=== PATIENT | female | born 1995 | race Caucasian/White ===

== ENCOUNTER 2018-11-26 23:32 | Emergency (ER) | payer OTHER ==
[~2018-11-26] VITALS: Ht 152.4 cm; Wt 113.4 kg
[2018-11-26] MEDS ORDERED: KAPSPARGO SPRI100 MG PO (23:47)
[2018-11-26] MEDS ORDERED: LORA1 PO (23:48)
[2018-11-26] MEDS ORDERED: LOSA50 PO (23:48)
[2018-11-26] MEDS ORDERED: LOPE2C PO (23:48)
[2018-11-26] MEDS ORDERED: Atrovent Inha12.9 GM INH (23:48)
[2018-11-26] MEDS ORDERED: TOPI50 PO (23:49)
[2018-11-26] MEDS ORDERED: ALLO100 PO (23:50)
[2018-11-26] MEDS ORDERED: SODBIC650 PO (23:50)
[2018-11-26] MEDS ORDERED: CINA30 (23:50)
[2018-11-26] MEDS ORDERED: LEVSOD137 PO (23:50)
[2018-11-27 00:06] LABS: BASOPHILS ABSOLUTE AUTO 0.05 K/mm3 (0.00-0.23); BASOPHILS PERCENT AUTO 0 % (0-2); EOSINOPHILS ABSOLUTE AUTO 0.24 K/mm3 (0.00-0.68); EOSINOPHILS PERCENT AUTO 2 % (0-6); Hematocrit 32.1 % (33.0-51.0); Hemoglobin 10.8 g/dL (11.5-16.0); IMMATURE GRAN ABSOLUTE AUTO 0.05 K/mm3 (0.00-0.10); IMMATURE GRAN PERCENT AUTO 0 % (0-1); LYMPHOCYTES ABSOLUTE AUTO 2.58 K/mm3 (0.84-5.20); LYMPHOCYTES PERCENT AUTO 21 % (21-46); MONOCYTES ABSOLUTE AUTO 0.72 K/mm3 (0.16-1.47); MONOCYTES PERCENT AUTO 6 % (4-13); Mean Corpuscular HGB Conc 33.6 g/dL (31.5-36.5); Mean Corpuscular Volume 101 fL (80-100); Mean Platelet Volume 9.9 fL (9.1-12.4); NEUTROPHILS ABSOLUTE AUTO 8.48 K/mm3 (1.96-9.15); NEUTROPHILS PERCENT AUTO 70 % (41-73); Platelet Count 284 K/mm3 (150-400); RDW Coefficient Variation 12.4 % (11.7-14.2); RDW Standard Deviation 46.5 fL (35.1-46.3); Red Blood Cell Count 3.18 M/mm3 (3.80-5.20); White Blood Cell Count 12.12 K/mm3 (4.00-11.30)
[2018-11-27 00:26] LABS: Alanine Aminotransfer (ALT/SGP 22 U/L (12-78); Albumin, Blood 3.5 g/dL (3.4-5.0); Albumin/Globulin Ratio 0.9 (0.8-1.8); Alk Phos 55 U/L (50-136); Anion Gap 9 mmol/L (6-16); Aspartate Aminotrans (AST/SGOT 4 U/L (12-37); Bilirubin, Total 0.2 mg/dL (0.1-1.0); Blood Urea Nitrogen 29 mg/dL (8-24); Bun/Creatinine Ratio 6.6 (12.0-20.0); CO2, Blood 31 mmol/L (21-32); Calcium, Blood 9.1 mg/dL (8.5-10.1); Chloride, Blood 99 mmol/L (98-108); Globulin, Blood 3.9 g/dL (2.2-4.0); Glomerular Filtration Rate 13 (60-); Glucose, Blood 167 mg/dL (70-99); Potassium, Blood 3.7 mmol/L (3.5-5.5); Sodium, Blood 139 mmol/L (136-145); Total Protein, Blood 7.4 g/dL (6.4-8.2); Troponin I <0.015 ng/mL (0.000-0.040)
== END 2018-11-27 04:47 | disposition home or self-care (01) ==
LOC: ER 23:32
PROVIDERS: Emergency Medicine
DX: R07.9 Chest pain, unspecified (principal); Z79.899 Other long term (current) drug therapy; N18.9 Chronic kidney disease, unspecified
CPT/HCPCS: 71046; 80053; 83880; 84484; 84703; 85025; 93005; 93010; 99285-25; J1642

== ENCOUNTER 2019-03-05 21:46 | Inpatient (IN) | payer OTHER ==
[~2019-03-05] VITALS: Ht 152.4 cm; Wt 129.7 kg
[~2019-03-05 21:46] MED LIST: ALLO100 PO; Atrovent Inha12.9 GM INH; CINA30; KAPSPARGO SPRI100 MG PO; LEVSOD137 PO; LOPE2C PO; LORA1 PO; LOSA50 PO; SODBIC650 PO; TOPI50 PO
[2019-03-06 00:11] LABS: BASOPHILS ABSOLUTE AUTO 0.04 K/mm3 (0.00-0.23); BASOPHILS PERCENT AUTO 0 % (0-2); EOSINOPHILS ABSOLUTE AUTO 0.21 K/mm3 (0.00-0.68); EOSINOPHILS PERCENT AUTO 1 % (0-6); Hematocrit 30.8 % (33.0-51.0); Hemoglobin 10.2 g/dL (11.5-16.0); IMMATURE GRAN ABSOLUTE AUTO 0.11 K/mm3 (0.00-0.10); IMMATURE GRAN PERCENT AUTO 1 % (0-1); LYMPHOCYTES ABSOLUTE AUTO 1.39 K/mm3 (0.84-5.20); LYMPHOCYTES PERCENT AUTO 10 % (21-46); MONOCYTES ABSOLUTE AUTO 0.67 K/mm3 (0.16-1.47); MONOCYTES PERCENT AUTO 5 % (4-13); Mean Corpuscular HGB Conc 33.1 g/dL (31.5-36.5); Mean Corpuscular Volume 103 fL (80-100); Mean Platelet Volume 9.9 fL (9.1-12.4); NEUTROPHILS ABSOLUTE AUTO 12.22 K/mm3 (1.96-9.15); NEUTROPHILS PERCENT AUTO 83 % (41-73); Platelet Count 277 K/mm3 (150-400); RDW Coefficient Variation 13.5 % (11.7-14.2); White Blood Cell Count 14.64 K/mm3 (4.00-11.30)
[2019-03-06 01:02] LABS: Albumin, Blood 2.9 g/dL (3.4-5.0); Albumin/Globulin Ratio 0.6 (0.8-1.8); Bilirubin, Total 0.3 mg/dL (0.1-1.0); Calcium, Blood 9.7 mg/dL (8.5-10.1); Creatinine, Blood 9.37 mg/dL (0.40-1.00); Globulin, Blood 4.8 g/dL (2.2-4.0); Total Protein, Blood 7.7 g/dL (6.4-8.2)
[2019-03-06] MEDS ORDERED: VITAMIN D (01:46)
[2019-03-06] MEDS ORDERED: ACET500 PO (01:50)
[2019-03-06] MEDS ORDERED: Catapres-Tts 11 EACH TOP (01:51)
[2019-03-06] MEDS ORDERED: ACET250 PO (01:51)
[2019-03-06] MEDS ORDERED: Calphron667 MG PO (01:51)
[2019-03-06] MEDS ORDERED: FISH OIL + D31 EACH PO (01:52)
[2019-03-06] MEDS ORDERED: BENADRYL25 MG PO (01:52)
[2019-03-06] MEDS ORDERED: COLCHICINE0.6 MG PO (01:52)
[2019-03-06] MEDS ORDERED: [UNRECOGNIZED DRUG - OTHER] PO (01:53)
[2019-03-06] MEDS ORDERED: PROM25S PR (01:53)
[2019-03-06] MEDS ORDERED: CINA30 PO (01:53)
[2019-03-06] MEDS ORDERED: OXYC5 PO (01:54)
[2019-03-06 05:44] LABS: BASOPHILS ABSOLUTE AUTO 0.04 K/mm3 (0.00-0.23); BASOPHILS PERCENT AUTO 0 % (0-2); EOSINOPHILS ABSOLUTE AUTO 0.22 K/mm3 (0.00-0.68); EOSINOPHILS PERCENT AUTO 2 % (0-6); Hematocrit 28.9 % (33.0-51.0); Hemoglobin 9.4 g/dL (11.5-16.0); IMMATURE GRAN ABSOLUTE AUTO 0.08 K/mm3 (0.00-0.10); IMMATURE GRAN PERCENT AUTO 1 % (0-1); LYMPHOCYTES ABSOLUTE AUTO 1.35 K/mm3 (0.84-5.20); LYMPHOCYTES PERCENT AUTO 10 % (21-46); MONOCYTES ABSOLUTE AUTO 0.69 K/mm3 (0.16-1.47); MONOCYTES PERCENT AUTO 5 % (4-13); Mean Corpuscular HGB 33.2 pg (26.0-34.0); Mean Corpuscular HGB Conc 32.5 g/dL (31.5-36.5); Mean Corpuscular Volume 102 fL (80-100); Mean Platelet Volume 9.7 fL (9.1-12.4); NEUTROPHILS ABSOLUTE AUTO 11.75 K/mm3 (1.96-9.15); NEUTROPHILS PERCENT AUTO 83 % (41-73); Platelet Count 251 K/mm3 (150-400); RDW Coefficient Variation 13.5 % (11.7-14.2); RDW Standard Deviation 50.9 fL (35.1-46.3); Red Blood Cell Count 2.83 M/mm3 (3.80-5.20); White Blood Cell Count 14.13 K/mm3 (4.00-11.30)
[2019-03-06 06:11] LABS: Calcium, Blood 9.5 mg/dL (8.5-10.1); Potassium, Blood 4.2 mmol/L (3.5-5.5)
[2019-03-06 06:16] LABS: Bun/Creatinine Ratio 6.2 (12.0-20.0); Creatinine, Blood 9.15 mg/dL (0.40-1.00)
--- NOTE | 2019-03-06 09:24 | NUR ---
TRANSPORTED TO DIALYSIS VIA STRETCHER.
[2019-03-06] MEDS ORDERED: Calcium Acetat667 MG PO (10:50)
--- NOTE | 2019-03-06 16:41 | NUR ---
SPOKE WITH SUMMER IN IMAGING SHE CONFIRMED THAT PT WAS SCHEDULED TO HAVE CT TODAY.
--- NOTE | 2019-03-06 19:17 | NUR ---
SHIFT SUMMARY OX3 INDEPENDENT. C/O LEFT ARM PAIN AND SWELLING; CT COMPLETED. 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 DIALYSIS PORT TO LEFT CW; RICHMOND CHAVEZ DRAINING SCANT AMOUNT TO LUE. UNPLEASANT BUT COOPERATIVE WITH CARE. FAMILY IN ROOM AND ATTENTIVE. RENTERIA. AFEBRILE TODAY.
--- NOTE | 2019-03-07 03:51 | NUR ---
SHIFT SUMMARY PT IS ALERT, ORIENTED, AND INDEPENDENT. PT REMAINED AFEBRILE DURING THE SHIFT. PT DID COMPLAIN OF PAIN IN HER LEFT ARM. PRN ANALGESICS WERE GIVEN TO GOOD EFFECT. PT ALSO COMPLAINED OF RASH ON BOTH ARMS. PT STATED IT DEVELOPED EARLIER IN THE DAY. PRN BENEDRYL WAS GIVEN. PT SLEPT ALL NIGHT AND HAD NO OTHER COMPLAINTS. THE PT AND FAMILY ARE ANXIOUSLY WAITING THE CT RESULTS. VSS. WILL CONTINUE TO MONITOR.
[2019-03-07 05:23] LABS: Hematocrit 30.1 % (33.0-51.0); Hemoglobin 9.7 g/dL (11.5-16.0)
[2019-03-07 05:45] LABS: Albumin, Blood 2.6 g/dL (3.4-5.0); Anion Gap 6 mmol/L (6-16); Blood Urea Nitrogen 45 mg/dL (8-24); CO2, Blood 35 mmol/L (21-32); Chloride, Blood 94 mmol/L (98-108); Creatinine, Blood 7.52 mg/dL (0.40-1.00); Glomerular Filtration Rate 7 (60-); Glucose, Blood 97 mg/dL (70-99); Magnesium, Blood 2.4 mg/dL (1.6-2.4); Potassium, Blood 4.2 mmol/L (3.5-5.5); Sodium, Blood 135 mmol/L (136-145)
--- NOTE | 2019-03-07 06:43 | NUR ---
HOSPITALIST WAS MADE AWARE OF POSITIVE BLOOD CULTURE AND INSTRUCTED RN THAT IF PT HAD A FEVER, TO ORDER VANCOMYOCIN PER PHARMACY. PT DOES NOT HAVE A FEVER AT THIS TIME. WILL RELAY INFORMATION TO DAY SHIFT.
--- NOTE | 2019-03-07 18:07 | NUR ---
SUMMARY PT SITTING UP IN BED EATING DINNER AND VISITING WITH HER MOTHER, PT HAS BEEN PLEASANT AND COOPERATIVE WITH CARE, INDEPENDENT IN THE ROOM, PT HAD A SHOWER, PT WENT TO DIALYSIS, BLOOD CULTURES WERE DRAWN FROM THE DIALYSIS CATH, THE MEDIPORT, AND PERIPHERALLY ALL AT THE SAME TIME THIS EVENING, PT GIULIA WELL, PT MED PER EMAR FOR PAIN, VSS, NO ACUTE CHANGES, WILL CONT TO MONITOR
--- NOTE | 2019-03-08 03:50 | NUR ---
SHIFT SUMMARY PT IS ALERT, ORIENTED, AND INDEPENDENT. PT CONTINUES TO COMPLAIN OF PAIN IN THE LEFT UPPER EXTREMITY. NO FEVER NOTED THIS SHIFT, AND OTHER VS WNL. PT CONTINUES TO HAVE RASH ON THE RIGHT POSTERIOR ARM. BENEDRYL GIVEN X1. NO OTHER COMPLAINTS AT THIS TIME. WILL CONTINUE TO MONITOR.
[2019-03-08 05:28] LABS: Hematocrit 29.6 % (33.0-51.0); Hemoglobin 9.4 g/dL (11.5-16.0)
[2019-03-08 06:00] LABS: Magnesium, Blood 2.2 mg/dL (1.6-2.4)
[2019-03-08 06:01] LABS: Albumin, Blood 2.5 g/dL (3.4-5.0); Anion Gap 6 mmol/L (6-16); Blood Urea Nitrogen 41 mg/dL (8-24); Bun/Creatinine Ratio 5.8 (12.0-20.0); CO2, Blood 36 mmol/L (21-32); Calcium, Blood 9.8 mg/dL (8.5-10.1); Chloride, Blood 93 mmol/L (98-108); Creatinine, Blood 7.04 mg/dL (0.40-1.00); Glomerular Filtration Rate 8 (60-); Glucose, Blood 110 mg/dL (70-99); Potassium, Blood 4.5 mmol/L (3.5-5.5); Sodium, Blood 135 mmol/L (136-145)
[2019-03-08] MEDS ORDERED: CEPH500 PO (11:19)
--- NOTE | 2019-03-08 12:18 | NUR ---
SUMMARY/DISCHARGE PT DISCHARGED TO HOME, PT AND HER MOM VERBALIZED UNDERSTANDING OF DISCHARGE INSTRUCTIONS REGARDING FOLLOW UP AND MEDICATIONS, MEDIPORT PACKED AND DEACCESSED, PT GIULIA WELL, PT TAKEN OUT VIA WHEELCHAIR WITHOUT ISSUES
== END 2019-03-08 12:20 | disposition home or self-care (01) | DRG 602 ==
LOC: ER 21:46 → MEDS 21:47 → ENPENDDIS 03-08 10:22 → MEDS 03-08 12:20
PROVIDERS: Emergency Medicine; Internal Medicine Nephrology; ADMIT Internal Medicine
PROC: 5A1D70Z Performance of Urinary Filtration, Intermittent, Less than 6 Hours Per Day (ICD-10-PCS; principal; 2019-03-08)
DX: L03.114 Cellulitis of left upper limb (principal); N18.6 End stage renal disease; G61.0 Guillain-Barre syndrome; N25.81 Secondary hyperparathyroidism of renal origin; E87.1 Hypo-osmolality and hyponatremia; R65.10 Systemic inflammatory response syndrome (SIRS) of non-infectious origin without acute organ dysfunction; I12.0 Hypertensive chronic kidney disease with stage 5 chronic kidney disease or end stage renal disease; Z99.2 Dependence on renal dialysis; D63.1 Anemia in chronic kidney disease; E87.70 Fluid overload, unspecified; E88.09 Other disorders of plasma-protein metabolism, not elsewhere classified; E03.9 Hypothyroidism, unspecified
CPT/HCPCS: 36415; 71046; 73200; 80048; 80053; 80069; 82550; 83605; 83735; 84443; 85014; 85018; 85025; 87040; 94640; 94760; 96361; 96372; 96374; 96375; 96376; 99285-25; G0257; G0378; J0881; J1642; J1644; J2270; J2405; J3370; J7030; J7050; Q0163

== ENCOUNTER → 2019-04-18 | Outpatient (CLI) | payer OTHER ==
[~2019-04-18] MED LIST changes: +ACET250 PO; +ACET500 PO; +BENADRYL25 MG PO; +CEPH500 PO; +CINA30 PO; +COLCHICINE0.6 MG PO; +Calcium Acetat667 MG PO; +Calphron667 MG PO; +Catapres-Tts 11 EACH TOP; +FISH OIL + D31 EACH PO; +OXYC5 PO; +PROM25S PR; +VITAMIN D; +[UNRECOGNIZED DRUG - OTHER] PO
[2019-04-18 17:46] LABS: Amylase, Blood 35 U/L (25-115)
[2019-04-18 17:49] LABS: Alanine Aminotransfer (ALT/SGP 17 U/L (12-78); Albumin, Blood 3.2 g/dL (3.4-5.0); Albumin/Globulin Ratio 0.8 (0.8-1.8); Alk Phos 57 U/L (50-136); Aspartate Aminotrans (AST/SGOT 6 U/L (12-37); Bilirubin, Direct <0.1 mg/dL (0.0-0.3); Bilirubin, Indirect Unable to Calculate mg/dL (0.1-0.7); Bilirubin, Total 0.3 mg/dL (0.1-1.0); Globulin, Blood 3.8 g/dL (2.2-4.0)
== END | disposition home or self-care (01) ==
LOC: LAB DAV 16:30
PROVIDERS: Internal Medicine Nephrology
DX: R10.9 Unspecified abdominal pain (principal)
CPT/HCPCS: 80076; 82150; 83690

== ENCOUNTER 2019-04-23 15:23 | Emergency (ER) | payer OTHER ==
[~2019-04-23] VITALS: Ht 152.4 cm; Wt 122.5 kg
[2019-04-23] MEDS ORDERED: PANT40 PO (15:42)
[2019-04-23 17:02] LABS: BASOPHILS ABSOLUTE AUTO 0.05 K/mm3 (0.00-0.23); BASOPHILS PERCENT AUTO 1 % (0-2); EOSINOPHILS PERCENT AUTO 3 % (0-6); Hematocrit 32.6 % (33.0-51.0); Hemoglobin 10.8 g/dL (11.5-16.0); IMMATURE GRAN ABSOLUTE AUTO 0.04 K/mm3 (0.00-0.10); IMMATURE GRAN PERCENT AUTO 0 % (0-1); LYMPHOCYTES ABSOLUTE AUTO 2.19 K/mm3 (0.84-5.20); LYMPHOCYTES PERCENT AUTO 21 % (21-46); MONOCYTES ABSOLUTE AUTO 0.66 K/mm3 (0.16-1.47); MONOCYTES PERCENT AUTO 6 % (4-13); Mean Corpuscular HGB 33.9 pg (26.0-34.0); Mean Corpuscular HGB Conc 33.1 g/dL (31.5-36.5); Mean Corpuscular Volume 102 fL (80-100); Mean Platelet Volume 9.5 fL (9.1-12.4); NEUTROPHILS PERCENT AUTO 70 % (41-73); Platelet Count 359 K/mm3 (150-400); RDW Coefficient Variation 13.3 % (11.7-14.2); RDW Standard Deviation 50.9 fL (35.1-46.3); Red Blood Cell Count 3.19 M/mm3 (3.80-5.20); White Blood Cell Count 10.64 K/mm3 (4.00-11.30)
[2019-04-23 17:24] LABS: Alanine Aminotransfer (ALT/SGP 17 U/L (12-78); Albumin, Blood 3.4 g/dL (3.4-5.0); Albumin/Globulin Ratio 0.8 (0.8-1.8); Alk Phos 53 U/L (50-136); Anion Gap 10 mmol/L (6-16); Aspartate Aminotrans (AST/SGOT 8 U/L (12-37); Bilirubin, Total 0.3 mg/dL (0.1-1.0); Blood Urea Nitrogen 60 mg/dL (8-24); Bun/Creatinine Ratio 8.9 (12.0-20.0); CO2, Blood 24 mmol/L (21-32); Calcium, Blood 9.5 mg/dL (8.5-10.1); Chloride, Blood 105 mmol/L (98-108); Creatinine, Blood 6.75 mg/dL (0.40-1.00); Glomerular Filtration Rate 8 (60-); Glucose, Blood 84 mg/dL (70-99); Potassium, Blood 4.5 mmol/L (3.5-5.5); Sodium, Blood 139 mmol/L (136-145); Total Protein, Blood 7.4 g/dL (6.4-8.2); Troponin I <0.015 ng/mL (0.000-0.040)
== END 2019-04-23 22:33 | disposition home or self-care (01) ==
LOC: ER 15:23
PROVIDERS: Physician Assistant
DX: R07.9 Chest pain, unspecified (principal); I12.0 Hypertensive chronic kidney disease with stage 5 chronic kidney disease or end stage renal disease; N18.6 End stage renal disease; D63.1 Anemia in chronic kidney disease; R79.1 Abnormal coagulation profile; E03.9 Hypothyroidism, unspecified; Z99.2 Dependence on renal dialysis; Z86.73 Personal history of transient ischemic attack (TIA), and cerebral infarction without residual deficits; Z88.8 Allergy status to other drugs, medicaments and biological substances; Z91.048 Other nonmedicinal substance allergy status; Z88.5 Allergy status to narcotic agent; Z91.040 Latex allergy status; Z79.899 Other long term (current) drug therapy
CPT/HCPCS: 71046; 71260; 80053; 83880; 84484; 85025; 85379; 93005; 93010; 96374-59; 96375-59; 99285-25; J1200; J1642; J2930; Q9967

== ENCOUNTER 2019-05-09 16:16 | Emergency (ER) | payer OTHER ==
[~2019-05-09] VITALS: Ht 154.9 cm; Wt 97.5 kg
[~2019-05-09 16:16] MED LIST changes: +PANT40 PO
[2019-05-09 18:51] LABS: BASOPHILS ABSOLUTE AUTO 0.05 K/mm3 (0.00-0.23); BASOPHILS PERCENT AUTO 1 % (0-2); EOSINOPHILS ABSOLUTE AUTO 0.16 K/mm3 (0.00-0.68); EOSINOPHILS PERCENT AUTO 2 % (0-6); IMMATURE GRAN ABSOLUTE AUTO 0.04 K/mm3 (0.00-0.10); IMMATURE GRAN PERCENT AUTO 0 % (0-1); LYMPHOCYTES ABSOLUTE AUTO 2.26 K/mm3 (0.84-5.20); LYMPHOCYTES PERCENT AUTO 22 % (21-46); MONOCYTES ABSOLUTE AUTO 0.68 K/mm3 (0.16-1.47); MONOCYTES PERCENT AUTO 7 % (4-13); Mean Corpuscular HGB 33.4 pg (26.0-34.0); Mean Corpuscular HGB Conc 33.3 g/dL (31.5-36.5); Mean Corpuscular Volume 100 fL (80-100); Mean Platelet Volume 9.4 fL (9.1-12.4); NEUTROPHILS ABSOLUTE AUTO 6.97 K/mm3 (1.96-9.15); NEUTROPHILS PERCENT AUTO 69 % (41-73); Platelet Count 283 K/mm3 (150-400); RDW Coefficient Variation 13.3 % (11.7-14.2); RDW Standard Deviation 49.1 fL (35.1-46.3); Red Blood Cell Count 3.29 M/mm3 (3.80-5.20); White Blood Cell Count 10.16 K/mm3 (4.00-11.30)
[2019-05-09 19:13] LABS: Alanine Aminotransfer (ALT/SGP 20 U/L (12-78); Albumin, Blood 3.4 g/dL (3.4-5.0); Albumin/Globulin Ratio 0.8 (0.8-1.8); Alk Phos 64 U/L (50-136); Anion Gap 5 mmol/L (6-16); Aspartate Aminotrans (AST/SGOT 10 U/L (12-37); Bilirubin, Total 0.3 mg/dL (0.1-1.0); Blood Urea Nitrogen 27 mg/dL (8-24); Bun/Creatinine Ratio 6.2 (12.0-20.0); CO2, Blood 34 mmol/L (21-32); Calcium, Blood 9.2 mg/dL (8.5-10.1); Chloride, Blood 98 mmol/L (98-108); Creatinine, Blood 4.33 mg/dL (0.40-1.00); Glomerular Filtration Rate 13 (60-); Glucose, Blood 78 mg/dL (70-99); Potassium, Blood 3.5 mmol/L (3.5-5.5); Sodium, Blood 137 mmol/L (136-145); Total Protein, Blood 7.4 g/dL (6.4-8.2); Troponin I <0.015 ng/mL (0.000-0.040)
== END 2019-05-09 21:31 | disposition home or self-care (01) ==
LOC: ER 16:16
PROVIDERS: Emergency Medicine
DX: R00.0 Tachycardia, unspecified (principal); I12.9 Hypertensive chronic kidney disease with stage 1 through stage 4 chronic kidney disease, or unspecified chronic kidney disease; N18.9 Chronic kidney disease, unspecified; Z88.5 Allergy status to narcotic agent; Z79.899 Other long term (current) drug therapy
CPT/HCPCS: 71046; 80053; 83880; 84484; 85025; 93005; 93010; 96374; 96375; 99285-25; A9270; J0780; J1642

== ENCOUNTER 2020-02-07 08:15 | Day surgery (SDC) | payer MEDICARE, OTHER ==
--- NOTE | 2020-02-07 12:08 | NUR ---
PT ATTEMPTED TWICE DURING THE VISIT TO URINATE. SHE WAS UNABLE TO COLLECT A SAMPLE. SPECIMIN CUP, CLEANING WIPES AND COPY OF ORDER SENT WITH PT. SHE REPORTS THAT SHE RARELY URINATES D/T ESRD. SHE STATES SOMETIMES IN THE MORNINGS SHE HAS SOME URINE IN HER BLADDER AND SHE WILL TRY TO COLLECT A SAMPLE AT THAT TIME.
[2020-02-07 12:48] LABS: Amylase, Blood 37 U/L (25-115)
[2020-02-07 12:53] LABS: Alanine Aminotransfer (ALT/SGP 22 U/L (12-78); Albumin, Blood 3.2 g/dL (3.4-5.0); Albumin/Globulin Ratio 0.8 (0.8-1.8); Alk Phos 57 U/L (50-136); Aspartate Aminotrans (AST/SGOT 5 U/L (12-37); Bilirubin, Direct <0.1 mg/dL (0.0-0.3); Bilirubin, Indirect Unable to Calculate mg/dL (0.1-0.7); Bilirubin, Total 0.3 mg/dL (0.1-1.0); Globulin, Blood 4.1 g/dL (2.2-4.0); Total Protein, Blood 7.3 g/dL (6.4-8.2)
== END 2020-02-07 12:08 | disposition home or self-care (01) ==
LOC: ATC 08:15
PROVIDERS: Internal Medicine Nephrology
DX: T82.848A Pain due to vascular prosthetic devices, implants and grafts, initial encounter (principal); E66.01 Morbid (severe) obesity due to excess calories; Y83.2 Surgical operation with anastomosis, bypass or graft as the cause of abnormal reaction of the patient, or of later complication, without mention of misadventure at the time of the procedure; I12.0 Hypertensive chronic kidney disease with stage 5 chronic kidney disease or end stage renal disease; E03.9 Hypothyroidism, unspecified; N18.6 End stage renal disease; Z99.2 Dependence on renal dialysis; Z88.5 Allergy status to narcotic agent; Z88.8 Allergy status to other drugs, medicaments and biological substances; Z88.1 Allergy status to other antibiotic agents; Z91.041 Radiographic dye allergy status; Z91.040 Latex allergy status; Z79.899 Other long term (current) drug therapy
CPT/HCPCS: 36591; 80076; 82150; 83690; 84703; J1642

== ENCOUNTER → 2020-02-08 | Outpatient (CLI) | payer MEDICARE, OTHER ==
[2020-02-08 11:57] LABS: Source, Urine Clean Catch
[2020-02-08 12:04] LABS: Bilirubin, Urine Neg (Neg); Blood, Urine 5+ (Neg); Glucose Qualitative, Urine Neg (Neg); Ketones, Urine Neg (Neg); Leukocyte Esterase, Urine 3+ (Neg); Nitrite, Urine Neg (Neg); Protein, Urine 3+ (Neg); Urobilinogen, Urine NORM (Normal)
[2020-02-08 12:12] LABS: Appearance, Urine Cloudy (Clear); Color, Urine Pale Yellow (P-Yellow)
[2020-02-08 12:14] LABS: Red Blood Cells, Urine 25-50 /hpf (0-2); White Blood Cells, Urine TNTC /hpf (0-5)
[2020-02-08 12:15] LABS: Squamous Epithelial Cells Few /hpf (Few)
[2020-02-08 12:16] LABS: Bacteria Mod /hpf
== END | disposition home or self-care (01) ==
LOC: LAB SHORT 09:00 → LAB 09:00
PROVIDERS: Internal Medicine Nephrology
DX: N18.4 Chronic kidney disease, stage 4 (severe) (principal); D63.1 Anemia in chronic kidney disease; R82.90 Unspecified abnormal findings in urine
CPT/HCPCS: 81001; 87086

== ENCOUNTER 2020-03-06 00:13 | Day surgery (SDC) | payer MEDICARE, OTHER | END 2020-03-06 11:10 | disposition home or self-care (01) | LOC: ATC 00:13 | DX: R07.9 Chest pain, unspecified (principal); I12.0 Hypertensive chronic kidney disease with stage 5 chronic kidney disease or end stage renal disease; N18.6 End stage renal disease; Z99.2 Dependence on renal dialysis; E66.01 Morbid (severe) obesity due to excess calories; Z88.5 Allergy status to narcotic agent; Z88.8 Allergy status to other drugs, medicaments and biological substances; Z88.3 Allergy status to other anti-infective agents; Z91.041 Radiographic dye allergy status; Z91.040 Latex allergy status; Z79.899 Other long term (current) drug therapy ==

== ENCOUNTER 2020-04-06 00:35 | Day surgery (SDC) | payer MEDICARE, OTHER | END 2020-04-06 10:38 | disposition home or self-care (01) | LOC: ATC 00:35 | DX: T82.848A Pain due to vascular prosthetic devices, implants and grafts, initial encounter (principal); Y83.2 Surgical operation with anastomosis, bypass or graft as the cause of abnormal reaction of the patient, or of later complication, without mention of misadventure at the time of the procedure; I12.0 Hypertensive chronic kidney disease with stage 5 chronic kidney disease or end stage renal disease; N18.6 End stage renal disease; E03.9 Hypothyroidism, unspecified; Z99.2 Dependence on renal dialysis; Z88.5 Allergy status to narcotic agent; Z88.8 Allergy status to other drugs, medicaments and biological substances; Z88.3 Allergy status to other anti-infective agents; Z91.041 Radiographic dye allergy status; Z91.040 Latex allergy status; Z79.899 Other long term (current) drug therapy; E66.01 Morbid (severe) obesity due to excess calories | CPT/HCPCS: 96523; J1642 ==

== ENCOUNTER 2020-05-06 00:34 | Day surgery (SDC) | payer MEDICARE, OTHER | END 2020-05-06 11:19 | disposition home or self-care (01) | LOC: ATC 00:34 | DX: Z45.2 Encounter for adjustment and management of vascular access device (principal); I12.0 Hypertensive chronic kidney disease with stage 5 chronic kidney disease or end stage renal disease; N18.6 End stage renal disease; E03.9 Hypothyroidism, unspecified; M10.9 Gout, unspecified; G93.2 Benign intracranial hypertension; E66.01 Morbid (severe) obesity due to excess calories; Z88.5 Allergy status to narcotic agent; Z88.8 Allergy status to other drugs, medicaments and biological substances; Z91.041 Radiographic dye allergy status; Z91.09 Other allergy status, other than to drugs and biological substances; Z91.048 Other nonmedicinal substance allergy status; Z91.040 Latex allergy status; Z79.899 Other long term (current) drug therapy; Z99.2 Dependence on renal dialysis; Z79.51 Long term (current) use of inhaled steroids | CPT/HCPCS: 96523; J1642 ==

== ENCOUNTER 2020-06-06 16:00 | Emergency (ER) | payer MEDICARE, OTHER ==
[~2020-06-06] VITALS: Ht 152.4 cm; Wt 122.0 kg
[2020-06-06 18:16] LABS: BASOPHILS ABSOLUTE AUTO 0.04 K/mm3 (0.00-0.23); BASOPHILS PERCENT AUTO 0 % (0-2); EOSINOPHILS ABSOLUTE AUTO 0.09 K/mm3 (0.00-0.68); EOSINOPHILS PERCENT AUTO 1 % (0-6); Hematocrit 32.2 % (33.0-51.0); Hemoglobin 10.8 g/dL (11.5-16.0); IMMATURE GRAN ABSOLUTE AUTO 0.04 K/mm3 (0.00-0.10); IMMATURE GRAN PERCENT AUTO 0 % (0-1); LYMPHOCYTES ABSOLUTE AUTO 1.66 K/mm3 (0.84-5.20); LYMPHOCYTES PERCENT AUTO 18 % (21-46); MONOCYTES ABSOLUTE AUTO 0.48 K/mm3 (0.16-1.47); MONOCYTES PERCENT AUTO 5 % (4-13); Mean Corpuscular HGB 34.7 pg (26.0-34.0); Mean Corpuscular HGB Conc 33.5 g/dL (31.5-36.5); Mean Corpuscular Volume 104 fL (80-100); Mean Platelet Volume 9.4 fL (9.1-12.4); NEUTROPHILS ABSOLUTE AUTO 6.91 K/mm3 (1.96-9.15); NEUTROPHILS PERCENT AUTO 75 % (41-73); Platelet Count 291 K/mm3 (150-400); RDW Coefficient Variation 13.4 % (11.7-14.2); RDW Standard Deviation 51.2 fL (35.1-46.3); Red Blood Cell Count 3.11 M/mm3 (3.80-5.20); White Blood Cell Count 9.22 K/mm3 (4.00-11.30)
[2020-06-06 18:34] LABS: Albumin, Blood 3.3 g/dL (3.4-5.0); Albumin/Globulin Ratio 0.8 (0.8-1.8); Bilirubin, Total 0.3 mg/dL (0.1-1.0); Calcium, Blood 9.1 mg/dL (8.5-10.1); Creatinine, Blood 3.5 mg/dL (0.40-1.00); Globulin, Blood 4.2 g/dL (2.2-4.0); Total Protein, Blood 7.5 g/dL (6.4-8.2)
[2020-06-06] MEDS ORDERED: OXYC5 PO (19:27)
== END 2020-06-06 19:33 | disposition home or self-care (01) ==
LOC: ER 16:00
PROVIDERS: Physician Assistant
DX: S40.022A Contusion of left upper arm, initial encounter (principal); I12.9 Hypertensive chronic kidney disease with stage 1 through stage 4 chronic kidney disease, or unspecified chronic kidney disease; N18.6 End stage renal disease; Z86.73 Personal history of transient ischemic attack (TIA), and cerebral infarction without residual deficits; Z99.2 Dependence on renal dialysis; X58.XXXA Exposure to other specified factors, initial encounter
CPT/HCPCS: 36415; 80053; 85025; 93971; J1170; J1642; J2405

== ENCOUNTER 2020-09-03 00:02 | Day surgery (SDC) | payer MEDICARE, OTHER | END 2020-09-03 22:53 | disposition home or self-care (01) | LOC: ATC 00:02 | DX: Z45.2 Encounter for adjustment and management of vascular access device (principal) ==

== ENCOUNTER 2020-09-14 00:32 | Day surgery (SDC) | payer MEDICARE, OTHER ==
--- NOTE | 2020-09-14 15:40 | NUR ---
PT IN FOR PORT FLUSH. SEE INTERVENTIONS. PT STATES NO RECENT FALLS, RISK ASSESSMENT DONE. PT D/C AT 1455. VERBAL EDUCATION TO PT REGARDING IMPLANTED PORT.
== END 2020-09-14 14:55 | disposition home or self-care (01) ==
LOC: ATC 00:32
DX: Z45.2 Encounter for adjustment and management of vascular access device (principal)
CPT/HCPCS: 96523; J1642

== ENCOUNTER 2020-10-12 00:44 | Day surgery (SDC) | payer MEDICARE, OTHER | END 2020-10-12 14:02 | disposition home or self-care (01) | LOC: ATC 00:44 | DX: N18.9 Chronic kidney disease, unspecified (principal) | CPT/HCPCS: 36591; J1642 ==

== ENCOUNTER 2020-11-16 00:12 | Day surgery (SDC) | payer MEDICARE, OTHER | END 2020-11-16 15:11 | disposition home or self-care (01) | LOC: ATC 00:12 | DX: N18.9 Chronic kidney disease, unspecified (principal) | CPT/HCPCS: 96523; J1642 ==

== ENCOUNTER 2021-04-16 04:28 | Day surgery (SDC) | payer MEDICARE, OTHER | END 2021-04-16 13:45 | disposition home or self-care (01) | LOC: ATC 04:28 | DX: Z45.2 Encounter for adjustment and management of vascular access device (principal); G61.0 Guillain-Barre syndrome; N18.6 End stage renal disease; R16.2 Hepatomegaly with splenomegaly, not elsewhere classified | CPT/HCPCS: 96523; J1642 ==

== ENCOUNTER 2021-09-03 00:39 | Day surgery (SDC) | payer MEDICARE, OTHER ==
[2021-09-03 12:33] LABS: Albumin, Blood 3.5 g/dL (3.4-5.0); Albumin/Globulin Ratio 0.8 (0.8-1.8); Bilirubin, Total 0.4 mg/dL (0.1-1.0); Bun/Creatinine Ratio 5.9 (12.0-20.0); Calcium, Blood 9.5 mg/dL (8.5-10.1); Creatinine, Blood 6.45 mg/dL (0.40-1.00); Globulin, Blood 4.5 g/dL (2.2-4.0); Potassium, Blood 3.8 mmol/L (3.5-5.5)
== END 2021-09-03 09:55 | disposition home or self-care (01) ==
LOC: ATC 00:39
PROVIDERS: Student in an Organized Health Care Education/Training Program
DX: R10.9 Unspecified abdominal pain (principal); G89.29 Other chronic pain; I12.0 Hypertensive chronic kidney disease with stage 5 chronic kidney disease or end stage renal disease; N18.6 End stage renal disease; M10.9 Gout, unspecified; Z88.8 Allergy status to other drugs, medicaments and biological substances; Z88.5 Allergy status to narcotic agent; Z91.040 Latex allergy status; Z86.73 Personal history of transient ischemic attack (TIA), and cerebral infarction without residual deficits; Z99.2 Dependence on renal dialysis
CPT/HCPCS: 80053; J1642

== ENCOUNTER 2021-09-06 07:06 | Day surgery (SDC) | payer MEDICARE, OTHER ==
[~2021-09-06] VITALS: Ht 152.4 cm; Wt 263.0 kg
--- NOTE | 2021-09-06 09:05 | NUR ---
09/06/21 0905 HIEN POSADA PT SIGNED FORM TO [facility].
--- NOTE | 2021-09-06 09:10 | NUR ---
09/06/21 0910 HIEN POSADA 2% ADM ORALLY PRIOP TO OPP PER
== END 2021-09-06 09:00 | disposition home or self-care (01) ==
LOC: ORSCSDS 07:06
PROVIDERS: Student in an Organized Health Care Education/Training Program
PROC: 0DB58ZX Excision of Esophagus, Via Natural or Artificial Opening Endoscopic, Diagnostic (ICD-10-PCS; principal; 2021-09-06 08:00)
PROC: 0DB78ZX Excision of Stomach, Pylorus, Via Natural or Artificial Opening Endoscopic, Diagnostic (ICD-10-PCS; principal; 2021-09-06 08:00)
PROC: 0DB98ZX Excision of Duodenum, Via Natural or Artificial Opening Endoscopic, Diagnostic (ICD-10-PCS; principal; 2021-09-06 08:00)
DX: R10.11 Right upper quadrant pain (principal); R11.2 Nausea with vomiting, unspecified; K21.9 Gastro-esophageal reflux disease without esophagitis; K29.80 Duodenitis without bleeding; K31.9 Disease of stomach and duodenum, unspecified; D13.0 Benign neoplasm of esophagus; I10 Essential (primary) hypertension; E78.5 Hyperlipidemia, unspecified; J45.909 Unspecified asthma, uncomplicated; E66.01 Morbid (severe) obesity due to excess calories; Z68.43 Body mass index [BMI] 50.0-59.9, adult; E03.9 Hypothyroidism, unspecified; Z79.899 Other long term (current) drug therapy; N19 Unspecified kidney failure
CPT/HCPCS: 88305; 88342; A9270; J1642; J2250; J2704; J3010; J7120

== ENCOUNTER 2021-10-04 01:07 | Day surgery (SDC) | payer MEDICARE, OTHER | END 2021-10-04 11:24 | disposition home or self-care (01) | LOC: ATC 01:07 | DX: Z45.2 Encounter for adjustment and management of vascular access device (principal); G61.0 Guillain-Barre syndrome; I12.0 Hypertensive chronic kidney disease with stage 5 chronic kidney disease or end stage renal disease; N18.6 End stage renal disease; Z99.2 Dependence on renal dialysis; M10.9 Gout, unspecified; Z86.73 Personal history of transient ischemic attack (TIA), and cerebral infarction without residual deficits; Z91.040 Latex allergy status; Z88.5 Allergy status to narcotic agent; Z88.8 Allergy status to other drugs, medicaments and biological substances; Z91.048 Other nonmedicinal substance allergy status; Z80.49 Family history of malignant neoplasm of other genital organs | CPT/HCPCS: J1642 ==

== ENCOUNTER 2022-01-03 09:06 | Day surgery (SDC) | payer MEDICARE, OTHER | END 2022-01-03 10:18 | disposition home or self-care (01) | LOC: ATC 09:06 | DX: Z45.2 Encounter for adjustment and management of vascular access device (principal); R16.2 Hepatomegaly with splenomegaly, not elsewhere classified; G61.0 Guillain-Barre syndrome; N18.6 End stage renal disease; Z88.5 Allergy status to narcotic agent; Z88.8 Allergy status to other drugs, medicaments and biological substances; Z91.040 Latex allergy status; K21.9 Gastro-esophageal reflux disease without esophagitis; E78.2 Mixed hyperlipidemia; E03.8 Other specified hypothyroidism | CPT/HCPCS: 96523; J1642 ==

== ENCOUNTER 2022-02-04 01:22 | Day surgery (SDC) | payer MEDICARE, OTHER | END 2022-02-04 10:01 | disposition home or self-care (01) | LOC: ATC 01:22 | DX: R16.2 Hepatomegaly with splenomegaly, not elsewhere classified (principal); G61.0 Guillain-Barre syndrome; N18.6 End stage renal disease; K21.9 Gastro-esophageal reflux disease without esophagitis; Z88.5 Allergy status to narcotic agent; Z88.8 Allergy status to other drugs, medicaments and biological substances; Z79.899 Other long term (current) drug therapy | CPT/HCPCS: 96523; J1642 ==

== ENCOUNTER 2022-03-04 02:11 | Day surgery (SDC) | payer MEDICARE, OTHER | END 2022-03-04 10:26 | disposition home or self-care (01) | LOC: ATC 02:11 | DX: Z45.2 Encounter for adjustment and management of vascular access device (principal); R16.2 Hepatomegaly with splenomegaly, not elsewhere classified; G61.0 Guillain-Barre syndrome; N18.6 End stage renal disease; Z88.5 Allergy status to narcotic agent; Z91.040 Latex allergy status; Z88.8 Allergy status to other drugs, medicaments and biological substances; Z79.899 Other long term (current) drug therapy; K21.9 Gastro-esophageal reflux disease without esophagitis; E78.2 Mixed hyperlipidemia; E03.8 Other specified hypothyroidism | CPT/HCPCS: 96523; J1642 ==

== ENCOUNTER 2022-03-07 07:31 | Day surgery (SDC) | payer MEDICARE, OTHER ==
[~2022-03-07] VITALS: Ht 152.4 cm; Wt 115.0 kg
== END 2022-03-07 09:42 | disposition home or self-care (01) ==
LOC: ORSCSDS 07:31
PROVIDERS: Student in an Organized Health Care Education/Training Program
PROC: 0DB68ZX Excision of Stomach, Via Natural or Artificial Opening Endoscopic, Diagnostic (ICD-10-PCS; principal; 2022-03-07 09:00)
DX: R11.2 Nausea with vomiting, unspecified (principal); K31.9 Disease of stomach and duodenum, unspecified; K29.70 Gastritis, unspecified, without bleeding; I12.0 Hypertensive chronic kidney disease with stage 5 chronic kidney disease or end stage renal disease; N18.6 End stage renal disease; Z85.828 Personal history of other malignant neoplasm of skin; E03.9 Hypothyroidism, unspecified; E78.5 Hyperlipidemia, unspecified; E66.01 Morbid (severe) obesity due to excess calories; Z68.42 Body mass index [BMI] 45.0-49.9, adult; Z79.899 Other long term (current) drug therapy
CPT/HCPCS: 84703; 88305; 88342; J1642; J2704; J7120

== ENCOUNTER 2022-04-05 15:24 | Emergency (ER) | payer MEDICARE, OTHER ==
[~2022-04-05] VITALS: Ht 167.6 cm; Wt 115.7 kg
[2022-04-05 17:26] LABS: BASOPHILS ABSOLUTE AUTO 0.04 K/mm3 (0.00-0.23); BASOPHILS PERCENT AUTO 1 % (0-2); EOSINOPHILS ABSOLUTE AUTO 0.12 K/mm3 (0.00-0.68); EOSINOPHILS PERCENT AUTO 2 % (0-6); Hematocrit 30.6 % (33.0-51.0); Hemoglobin 10.6 g/dL (11.5-16.0); IMMATURE GRAN ABSOLUTE AUTO 0.02 K/mm3 (0.00-0.10); IMMATURE GRAN PERCENT AUTO 0 % (0-1); LYMPHOCYTES ABSOLUTE AUTO 1.55 K/mm3 (0.84-5.20); LYMPHOCYTES PERCENT AUTO 19 % (21-46); MONOCYTES ABSOLUTE AUTO 0.41 K/mm3 (0.16-1.47); MONOCYTES PERCENT AUTO 5 % (4-13); Mean Corpuscular HGB 34.9 pg (26.0-34.0); Mean Corpuscular HGB Conc 34.6 g/dL (31.5-36.5); Mean Corpuscular Volume 101 fL (80-100); NEUTROPHILS ABSOLUTE AUTO 6.05 K/mm3 (1.96-9.15); NEUTROPHILS PERCENT AUTO 74 % (41-73); Platelet Count 254 K/mm3 (150-400); RDW Coefficient Variation 13.7 % (11.7-14.2); RDW Standard Deviation 49.9 fL (35.1-46.3); Red Blood Cell Count 3.04 M/mm3 (3.80-5.20); White Blood Cell Count 8.19 K/mm3 (4.00-11.30)
[2022-04-05 17:58] LABS: Albumin, Blood 3.4 g/dL (3.4-5.0); Albumin/Globulin Ratio 0.8 (0.8-1.8); Bilirubin, Total 0.3 mg/dL (0.1-1.0); Bun/Creatinine Ratio 6.2 (12.0-20.0); Calcium, Blood 9.1 mg/dL (8.5-10.1); Creatinine, Blood 5.32 mg/dL (0.40-1.00); Globulin, Blood 4.3 g/dL (2.2-4.0); Potassium, Blood 3.9 mmol/L (3.5-5.5); Total Protein, Blood 7.7 g/dL (6.4-8.2)
== END 2022-04-05 22:57 | disposition home or self-care (01) ==
LOC: ER 15:24
PROVIDERS: Emergency Medicine
DX: R07.89 Other chest pain (principal); I12.0 Hypertensive chronic kidney disease with stage 5 chronic kidney disease or end stage renal disease; N18.6 End stage renal disease; Z99.2 Dependence on renal dialysis; Z88.5 Allergy status to narcotic agent; Z88.8 Allergy status to other drugs, medicaments and biological substances; Z88.1 Allergy status to other antibiotic agents; Z91.040 Latex allergy status; Z79.899 Other long term (current) drug therapy
CPT/HCPCS: 71045; 71275; 80053; 84484; 85025; 85379; 93005; 93010; A9270; J1200; J1642; J2270; J2405; J2930; Q9967

== ENCOUNTER 2022-06-03 00:07 | Day surgery (SDC) | payer MEDICARE, OTHER ==
[2022-06-03 11:23] LABS: Hematocrit 32.3 % (33.0-51.0); Hemoglobin 11.2 g/dL (11.5-16.0); Mean Corpuscular HGB 34.1 pg (26.0-34.0); Mean Corpuscular HGB Conc 34.7 g/dL (31.5-36.5); Mean Corpuscular Volume 99 fL (80-100); Mean Platelet Volume 9.2 fL (9.1-12.4); Platelet Count 287 K/mm3 (150-400); RDW Coefficient Variation 13.1 % (11.7-14.2); RDW Standard Deviation 47.1 fL (35.1-46.3); Red Blood Cell Count 3.28 M/mm3 (3.80-5.20); White Blood Cell Count 7.09 K/mm3 (4.00-11.30)
[2022-06-03 11:40] LABS: International Normalized Ratio 1.03; Prothrombin Time Results 10.8 Sec (9.7-11.5)
[2022-06-03 11:46] LABS: BAND PERCENT MAN 1 % (0-8); BASOPHILS PERCENT MAN 0 % (0-2); EOSINOPHILS ABSOLUTE MAN 0.21 K/mm3 (0.00-0.68); EOSINOPHILS PERCENT MAN 3 % (0-6); LYMPHOCYTES ABSOLUTE MAN 1.13 K/mm3 (0.84-5.20); LYMPHOCYTES PERCENT MAN 16 % (21-46); METAMYELOCYTE ABSOLUTE MAN 0.07 K/mm3 (0.00-0.00); METAMYELOCYTE PERCENT MAN 1 % (0-0); MONOCYTES ABSOLUTE MAN 0.49 K/mm3 (0.16-1.47); MONOCYTES PERCENT MAN 7 % (4-13); NEUTROPHILS ABSOLUTE MAN 5.17 K/mm3 (1.96-9.15); SEG NEUTROPHILS PERCENT MAN 72 % (41-73); TOTAL CELLS COUNTED 100
[2022-06-03 11:50] LABS: Bun/Creatinine Ratio 6.8 (12.0-20.0); Creatinine, Blood 6.32 mg/dL (0.40-1.00); Potassium, Blood 3.6 mmol/L (3.5-5.5)
[2022-06-06] MEDS ORDERED: AMLO10 PO (15:10)
[2022-06-06] MEDS ORDERED: CATAPRES-TTS 11 EAC1 TOP (15:10)
[2022-06-06] MEDS ORDERED: ESCI20 PO (15:17)
[2022-06-06] MEDS ORDERED: [UNRECOGNIZED DRUG - OTHER] SC (15:17)
[2022-06-06] MEDS ORDERED: GABA300 PO (15:18)
[2022-06-06] MEDS ORDERED: Fosrenol750 MG PO (15:19)
[2022-06-06] MEDS ORDERED: OMEP20ER PO (15:21)
[2022-06-06] MEDS ORDERED: PROM25 PO (15:22)
[2022-06-06] MEDS ORDERED: FLUMADINE PO (15:25)
[2022-06-06] MEDS ORDERED: Ropinirole HCl0.5 MG PO (15:26)
[2022-06-06] MEDS ORDERED: SPIR25 PO (15:27)
[2022-06-06] MEDS ORDERED: TRAM50 PO (15:28)
[2022-06-06] MEDS ORDERED: RESTORIL15 M1 PO (15:28)
== END 2022-06-03 11:11 | disposition home or self-care (01) ==
LOC: ATC 00:07
PROVIDERS: Physician Assistant
DX: N18.6 End stage renal disease (principal); K21.9 Gastro-esophageal reflux disease without esophagitis; E03.8 Other specified hypothyroidism; G61.0 Guillain-Barre syndrome; Z86.73 Personal history of transient ischemic attack (TIA), and cerebral infarction without residual deficits; Z88.5 Allergy status to narcotic agent; Z88.8 Allergy status to other drugs, medicaments and biological substances; Z91.040 Latex allergy status
CPT/HCPCS: 80048; 85007; 85027; 85610; J1642

== ENCOUNTER 2022-06-07 08:46 | Day surgery (SDC) | payer MEDICARE, OTHER ==
[~2022-06-07] VITALS: Ht 165.1 cm; Wt 112.0 kg
[~2022-06-07 08:46] MED LIST changes: +AMLO10 PO; +CATAPRES-TTS 11 EAC1 TOP; +ESCI20 PO; +FLUMADINE PO; +Fosrenol750 MG PO; +GABA300 PO; +OMEP20ER PO; +PROM25 PO; +RESTORIL15 M1 PO; +Ropinirole HCl0.5 MG PO; +SPIR25 PO; +TRAM50 PO; +[UNRECOGNIZED DRUG - OTHER] SC
--- NOTE | 2022-06-07 15:45 | NUR ---
PT PURSE STRINGS REMOVED FROM L UPPER ARM/ FISTULA. TOLERATES WELL. NO BLEEDINGN NOTED. DOT DRESSINGS APPLIED. PT DRESSES SELF WITHOUT DIFF. VSS. NADN. PT VERBALIZES UNDERSTANDING WRITTEN AND VERBAL INSTRUCTIONS. DENIES QUESTIONS. PT DC TO HOME VIA MOTHER.
== END 2022-06-07 15:45 | disposition home or self-care (01) ==
LOC: MHTC 08:46
DX: T82.848A Pain due to vascular prosthetic devices, implants and grafts, initial encounter (principal); N18.6 End stage renal disease; K21.9 Gastro-esophageal reflux disease without esophagitis; E78.5 Hyperlipidemia, unspecified; I12.0 Hypertensive chronic kidney disease with stage 5 chronic kidney disease or end stage renal disease; Z88.8 Allergy status to other drugs, medicaments and biological substances; Z88.5 Allergy status to narcotic agent; Z91.040 Latex allergy status
CPT/HCPCS: 76937; 99152; 99153; C1725; C1753; C1769; C1887; C1894; J1200; J1644; J1720; J2250; J3010; J7030; J7040; Q9967

== ENCOUNTER 2022-06-22 13:37 | Emergency (ER) | payer MEDICARE, OTHER ==
[~2022-06-22] VITALS: Ht 152.4 cm; Wt 112.0 kg
== END 2022-06-22 21:58 | disposition home or self-care (01) ==
LOC: ER 13:37
DX: R51.9 Headache, unspecified (principal); G93.2 Benign intracranial hypertension; I12.0 Hypertensive chronic kidney disease with stage 5 chronic kidney disease or end stage renal disease; N18.6 End stage renal disease; Z79.899 Other long term (current) drug therapy; Z79.890 Hormone replacement therapy; Z88.8 Allergy status to other drugs, medicaments and biological substances; Z91.040 Latex allergy status; Z91.09 Other allergy status, other than to drugs and biological substances; Z86.73 Personal history of transient ischemic attack (TIA), and cerebral infarction without residual deficits
CPT/HCPCS: 70450; A9270; J1170

== ENCOUNTER 2022-07-22 00:02 | Day surgery (SDC) | payer MEDICARE, OTHER ==
[~2022-07-22 00:02] MED LIST changes: +TIZA4 PO
== END 2022-07-22 08:31 | disposition home or self-care (01) ==
LOC: ATC 00:02
DX: N18.9 Chronic kidney disease, unspecified (principal); N26.1 Atrophy of kidney (terminal); G61.0 Guillain-Barre syndrome; R16.2 Hepatomegaly with splenomegaly, not elsewhere classified; Z99.2 Dependence on renal dialysis
CPT/HCPCS: J1642

== ENCOUNTER 2022-08-03 00:30 | Day surgery (SDC) | payer MEDICARE, OTHER ==
[2022-08-03 12:04] LABS: BASOPHILS ABSOLUTE AUTO 0.04 K/mm3 (0.00-0.23); BASOPHILS PERCENT AUTO 1 % (0-2); EOSINOPHILS ABSOLUTE AUTO 0.42 K/mm3 (0.00-0.68); EOSINOPHILS PERCENT AUTO 5 % (0-6); Hematocrit 29.2 % (33.0-51.0); Hemoglobin 9.9 g/dL (11.5-16.0); IMMATURE GRAN ABSOLUTE AUTO 0.03 K/mm3 (0.00-0.10); IMMATURE GRAN PERCENT AUTO 0 % (0-1); LYMPHOCYTES ABSOLUTE AUTO 1.35 K/mm3 (0.84-5.20); LYMPHOCYTES PERCENT AUTO 16 % (21-46); MONOCYTES ABSOLUTE AUTO 0.36 K/mm3 (0.16-1.47); MONOCYTES PERCENT AUTO 4 % (4-13); Mean Corpuscular HGB 34.4 pg (26.0-34.0); Mean Corpuscular HGB Conc 33.9 g/dL (31.5-36.5); Mean Corpuscular Volume 101 fL (80-100); Mean Platelet Volume 9.2 fL (9.1-12.4); NEUTROPHILS ABSOLUTE AUTO 6.47 K/mm3 (1.96-9.15); NEUTROPHILS PERCENT AUTO 75 % (41-73); Platelet Count 266 K/mm3 (150-400); RDW Coefficient Variation 14.6 % (11.7-14.2); RDW Standard Deviation 53.2 fL (35.1-46.3); Red Blood Cell Count 2.88 M/mm3 (3.80-5.20); White Blood Cell Count 8.67 K/mm3 (4.00-11.30)
[2022-08-03 13:02] LABS: Bun/Creatinine Ratio 9.2 (12.0-20.0); Calcium, Blood 9.7 mg/dL (8.5-10.1); Creatinine, Blood 10.9 mg/dL (0.40-1.00); Potassium, Blood 4.2 mmol/L (3.5-5.5)
== END 2022-08-03 11:40 | disposition home or self-care (01) ==
LOC: ATC 00:30
PROVIDERS: Physician Assistant
DX: N18.6 End stage renal disease (principal); Z99.2 Dependence on renal dialysis; G61.0 Guillain-Barre syndrome; Z88.6 Allergy status to analgesic agent; Z91.041 Radiographic dye allergy status; Z91.040 Latex allergy status; Z91.09 Other allergy status, other than to drugs and biological substances; K21.9 Gastro-esophageal reflux disease without esophagitis; E78.2 Mixed hyperlipidemia; Z86.73 Personal history of transient ischemic attack (TIA), and cerebral infarction without residual deficits; M10.9 Gout, unspecified; F32.A Depression, unspecified
CPT/HCPCS: 36591; 80048; 85025; J1642

== ENCOUNTER 2022-08-06 14:58 | Emergency (ER) | payer MEDICARE, OTHER ==
[~2022-08-06] VITALS: Ht 152.4 cm; Wt 72.6 kg
[2022-08-06 15:47] LABS: BASOPHILS ABSOLUTE AUTO 0.04 K/mm3 (0.00-0.23); BASOPHILS PERCENT AUTO 0 % (0-2); EOSINOPHILS ABSOLUTE AUTO 0.39 K/mm3 (0.00-0.68); EOSINOPHILS PERCENT AUTO 4 % (0-6); Hematocrit 33.6 % (33.0-51.0); Hemoglobin 11.7 g/dL (11.5-16.0); IMMATURE GRAN ABSOLUTE AUTO 0.05 K/mm3 (0.00-0.10); IMMATURE GRAN PERCENT AUTO 1 % (0-1); LYMPHOCYTES ABSOLUTE AUTO 1.73 K/mm3 (0.84-5.20); LYMPHOCYTES PERCENT AUTO 17 % (21-46); MONOCYTES ABSOLUTE AUTO 0.68 K/mm3 (0.16-1.47); MONOCYTES PERCENT AUTO 7 % (4-13); Mean Corpuscular HGB 34.3 pg (26.0-34.0); Mean Corpuscular HGB Conc 34.8 g/dL (31.5-36.5); Mean Corpuscular Volume 99 fL (80-100); NEUTROPHILS ABSOLUTE AUTO 7.61 K/mm3 (1.96-9.15); NEUTROPHILS PERCENT AUTO 72 % (41-73); Platelet Count 328 K/mm3 (150-400); RDW Coefficient Variation 14.5 % (11.7-14.2); RDW Standard Deviation 52.1 fL (35.1-46.3); Red Blood Cell Count 3.41 M/mm3 (3.80-5.20)
[2022-08-06 16:16] LABS: Magnesium, Blood 1.8 mg/dL (1.6-2.4)
[2022-08-06 16:44] LABS: Albumin, Blood 3.6 g/dL (3.4-5.0); Albumin/Globulin Ratio 0.8 (0.8-1.8); Bilirubin, Total 0.3 mg/dL (0.1-1.0); Bun/Creatinine Ratio 6.8 (12.0-20.0); Calcium, Blood 8.9 mg/dL (8.5-10.1); Creatinine, Blood 4.58 mg/dL (0.40-1.00); Globulin, Blood 4.6 g/dL (2.2-4.0); Potassium, Blood 3.1 mmol/L (3.5-5.5); Thyroid Stimulating Hormone 7.62 uIU/mL (0.360-4.800); Total Protein, Blood 8.2 g/dL (6.4-8.2)
== END 2022-08-06 17:35 | disposition home or self-care (01) ==
LOC: ER 14:58
PROVIDERS: Emergency Medicine
DX: R00.2 Palpitations (principal); R00.0 Tachycardia, unspecified; N18.6 End stage renal disease; Z99.2 Dependence on renal dialysis
CPT/HCPCS: 71046; 80053; 83735; 84443; 84484; 85025; 93005; 93010; A9270; J1642

== ENCOUNTER 2022-09-07 02:32 | Day surgery (SDC) | payer MEDICARE, OTHER | END 2022-09-07 11:53 | disposition home or self-care (01) | LOC: ATC 02:32 | PROVIDERS: Family Medicine | DX: I12.0 Hypertensive chronic kidney disease with stage 5 chronic kidney disease or end stage renal disease (principal); N18.6 End stage renal disease; Z99.2 Dependence on renal dialysis; G61.0 Guillain-Barre syndrome; R16.2 Hepatomegaly with splenomegaly, not elsewhere classified; K21.9 Gastro-esophageal reflux disease without esophagitis; E78.2 Mixed hyperlipidemia; Z86.73 Personal history of transient ischemic attack (TIA), and cerebral infarction without residual deficits; M10.9 Gout, unspecified; F32.A Depression, unspecified; Z91.012 Allergy to eggs; Z91.040 Latex allergy status; Z88.8 Allergy status to other drugs, medicaments and biological substances; Z88.5 Allergy status to narcotic agent | CPT/HCPCS: 36591; 82533; 84443; J1642 ==

== ENCOUNTER 2022-11-15 10:51 | Inpatient (IN) | payer MEDICARE, OTHER ==
[~2022-11-15] VITALS: Ht 152.4 cm; Wt 113.0 kg
[2022-11-15] VITALS (15 sets, daily range): BP systolic 94–132; BP diastolic 66–97
[2022-11-15 11:55] LABS: BASOPHILS ABSOLUTE AUTO 0.01 K/mm3 (0.00-0.23); BASOPHILS PERCENT AUTO 0 % (0-2); EOSINOPHILS PERCENT AUTO 2 % (0-6); Hematocrit 20.4 % (33.0-51.0); Hemoglobin 6.8 g/dL (11.5-16.0); IMMATURE GRAN ABSOLUTE AUTO 0.03 K/mm3 (0.00-0.10); IMMATURE GRAN PERCENT AUTO 1 % (0-1); LYMPHOCYTES ABSOLUTE AUTO 0.87 K/mm3 (0.84-5.20); LYMPHOCYTES PERCENT AUTO 20 % (21-46); MONOCYTES ABSOLUTE AUTO 0.29 K/mm3 (0.16-1.47); MONOCYTES PERCENT AUTO 7 % (4-13); Mean Corpuscular HGB 34.2 pg (26.0-34.0); Mean Corpuscular HGB Conc 33.3 g/dL (31.5-36.5); Mean Corpuscular Volume 103 fL (80-100); Mean Platelet Volume 9.8 fL (9.1-12.4); NEUTROPHILS ABSOLUTE AUTO 3.14 K/mm3 (1.96-9.15); NEUTROPHILS PERCENT AUTO 71 % (41-73); Platelet Count 155 K/mm3 (150-400); RDW Coefficient Variation 14.6 % (11.7-14.2); RDW Standard Deviation 54.6 fL (35.1-46.3); Red Blood Cell Count 1.99 M/mm3 (3.80-5.20); White Blood Cell Count 4.44 K/mm3 (4.00-11.30)
[2022-11-15 12:11] LABS: Albumin/Globulin Ratio 0.9 (0.8-1.8); Bilirubin, Total 0.2 mg/dL (0.1-1.0); Bun/Creatinine Ratio 6.8 (12.0-20.0); Creatinine, Blood 6.5 mg/dL (0.40-1.00); Globulin, Blood 2.3 g/dL (2.2-4.0); Potassium, Blood 2.6 mmol/L (3.5-5.5); Total Protein, Blood 4.3 g/dL (6.4-8.2)
[2022-11-15 13:11] LABS: International Normalized Ratio 0.96; Prothrombin Time Results 10.1 Sec (9.7-11.5)
--- NOTE | 2022-11-15 14:00 | NUR ---
ASSUMED CARE: PT NEW ADMIT FROM ED. SHE IS ALERT AND ORIENTED, MOTHER AT BEDSIDE GIVING PT HISTORY. PT HAS HAD 2 STROKES BEFORE AND HAS SOME ISSUES WITH FOLLOWING DIRECTION OR UNDERSTANDING WHAT IS BEING ASKED. MOTHER PROVIDES MOST OF HISTORY. DR EUBANKS GAVE PERMISSION TO USE REPP FOR LAB DRAWS. PT HAS FISTULA TO LEFT ARM WITH THRILL NOTED. CALL TO DR RENTERIA WITH CONSULT AND DR RENTERIA CONTACTED DIALYSIS NURSE TO RUN UNIT OF BLOOD WITH DIALYSIS. PASSENGER SERVICE AGENT AT BEDSIDE MEDICATING FOR PAIN.
--- NOTE | 2022-11-15 15:35 | NUR ---
ATTEMPTED TO CALL CONSULT TO DR KELLY. OFFICE STAFF CHECKING WITH HIM TO SEE IF CONSULT CAN BE TAKEN AND WILL CALL BACK
--- NOTE | 2022-11-15 15:41 | NUR ---
YPATIENT REFUSED TO HAVE BLADDER SCAN DONE AT THIS TIME, WILL TRY AGAIN LATER, PATIENT GRUMPY WITH STAFF.
--- NOTE | 2022-11-15 15:44 | NUR ---
DR KELLY'S OFFICE CALLED BACK AND SAID DR KELLY IS DECLINING CONSULT. DISCUSSED WITH DR EUBANKS WHO STATED CLEAR LIQUID FOR NOW AND GI CONSULT TO BE CALLED IN TOMORROW WHEN GI IS AVAILABLE
--- NOTE | 2022-11-15 16:06 | NUR ---
DIALYSIS NURSE AT BEDSIDE. RIVER CAPTAIN OFFERED BLADDER SCAN WHILE NURSE WAS GETTING SET UP BUT PT DECLINED UNTIL PAIN IS MANAGED. MEDICATED FOR PAIN PER ORDERS
--- NOTE | 2022-11-15 17:21 | NUR ---
DIALYSIS TOOK DIALYSIS MACHINE UP TO PT'S ROOM. IMMEDIATELY THE RO MACHINE STARTED GOING OFF AND ON. THAT IS WHAT IT DOES WHEN THE WATER PRESSURE IS TOO LOW. UNABLE TO PUT PT ON THE TX. CALLED MAINTENANCE AND THEY WERE ABLE TO GET PRESSURE BACK UP. TOOK ABOUT 30-45 MIN. CONNECTED THE MACHINE TO THE SINK AND STARTED THE PT ON TX. GAVE HER 1 U PRBC, ZOFRAN IV, AND BENADRYL IV.
--- NOTE | 2022-11-15 18:25 | NUR ---
SHIFT SUMMARY: DIALYSIS OCCURRING AT THIS TIME. PT RECIEVED A UNIT OF BLOOD WITH DIALYSIS. DR RENTERIA SAW PT AT BEDSIDE WELL. CHARGE RNS AWARE THAT GI CONSULT NEEDS TO BE CALLED IN AM DUE TO NO CONSULT AT THIS TIME. MEDICATED FOR PAIN X2. NO FURTHER NEEDS AT THIS TIME.
[2022-11-16] VITALS (19 sets, daily range): BP systolic 11–144; BP diastolic 54–78
[2022-11-16 05:21] LABS: Hematocrit 28.9 % (33.0-51.0); Hemoglobin 9.8 g/dL (11.5-16.0)
[2022-11-16 05:43] LABS: Albumin, Blood 2.6 g/dL (3.4-5.0); Anion Gap 6 mmol/L (6-16); Blood Urea Nitrogen 28 mg/dL (8-24); CO2, Blood 31 mmol/L (21-32); Calcium, Blood 7.7 mg/dL (8.5-10.1); Chloride, Blood 104 mmol/L (98-108); Creatinine, Blood 5.59 mg/dL (0.40-1.00); Glomerular Filtration Rate 10 (60-); Glucose, Blood 90 mg/dL (70-99); Magnesium, Blood 1.9 mg/dL (1.6-2.4); Phosphorus, Blood 4.9 mg/dL (2.5-4.9); Potassium, Blood 3.2 mmol/L (3.5-5.5); Sodium, Blood 141 mmol/L (136-145)
--- NOTE | 2022-11-16 12:59 | NUR ---
11/16/22 [address] MOSER; SEE ANESTHESIA RECORDS.
--- NOTE | 2022-11-16 14:17 | NUR ---
FLUSHED MEDIPORT RCW WITH 20NS/PATENT.
--- NOTE | 2022-11-16 16:11 | NUR ---
SHIFT SUMMARY- PT IS A/O. SHE HAS BEEN NPO THIS SHIFT. WENT FOR DIALYSIS THIS SHIFT. GI WAS CONSULTED AND SHE WENT FOR AN UPPER SCOPE. HER MOM WAS AT BEDSIDE MOST OF THIS SHIFT. SHE IS AMBULATING TO THE RESTROOM. SHE IS CURRENTLY OFF THE UNIT IN DAY OR
[2022-11-17] VITALS (16 sets, daily range): BP systolic 65–1121; BP diastolic 29–77
--- NOTE | 2022-11-17 04:30 | NUR ---
SHIFT SUMMARY A/O PT WITH FLAT AFFECT, WEARING THE EFFECTS OF CHRONIC HEALTH PROBLEM. CONTACTED MD FOR ORDERS REGARDING COLONOSCOPY IN AM. INSTRUCTIONS WERE EXPLAINED TO PT AND FAMILY AT BEDSIDE REGARDING PREP FOR PROCEDURE. PT COVERED FOR ABD PAIN AND HAS SLEPT MOST OF THE SHIFT. ENC PT TO DRINK HER PREP BUT SO FAR HASNT.
--- NOTE | 2022-11-17 15:54 | NUR ---
SHIFT SUMMARY PATIENT IS ALERT AND ORIENTED. PATIENT HAS HAD NO ACUTE EVENTS THIS SHIFT. PATIENT HAD DIALYSIS TODAY. PATIENT IS SCHEDULED TO HAVE COLONOSCOPY TOMORROW. PATIENT IS SLOWLY INTAKING MIRNA FOR BOWL PREP. PATIENT HAS BEEN NAUSOUS AND MEDICATED PER EMAR. PATIENT HAS NOT REPORTED ANY PAIN THIS SHIFT. PATIENT HAS NOT HAD SOB OR VOMITTING THIS SHIFT. REPORT GIVEN TO ELVIRA RN FOR REMAINDER OF SHIFT. BED IN LOCKED AND LOWEST POSITION, CALL LIGHT IN PLACE. WILL MONITOR UNTIL SHIFT CHANGE.
--- NOTE | 2022-11-17 16:54 | NUR ---
ASSUMED CARE OF PT FROM ELIAZAR BERMAN. REPORT RECEIVED. PT C/O PAIN AND WAS MEDICATED PER THE EMAR. ENCOURAGED PT TO DRINK MIRNA FOR COLONOSCOPY TOMORROW. BED IN THE LOWEST POSITION, CALL LIGHT WITHIN REACH. WILL REPORT TO ONCOMING NURSE.
[2022-11-18 04:17] VITALS: BP 101/57
[2022-11-18 05:30] LABS: Hematocrit 29.4 % (33.0-51.0); Hemoglobin 9.7 g/dL (11.5-16.0)
[2022-11-18 05:50] LABS: Anion Gap 6 mmol/L (6-16); Blood Urea Nitrogen 22 mg/dL (8-24); Bun/Creatinine Ratio 3.5 (12.0-20.0); CO2, Blood 34 mmol/L (21-32); Calcium, Blood 8.4 mg/dL (8.5-10.1); Chloride, Blood 103 mmol/L (98-108); Creatinine, Blood 6.35 mg/dL (0.40-1.00); Glomerular Filtration Rate 9 (60-); Glucose, Blood 99 mg/dL (70-99); Magnesium, Blood 1.9 mg/dL (1.6-2.4); Phosphorus, Blood 4.1 mg/dL (2.5-4.9); Sodium, Blood 143 mmol/L (136-145)
[2022-11-18 07:41] VITALS: BP 106/60
--- NOTE | 2022-11-18 08:44 | NUR ---
top collar maker summary Will was up and down most of the night as a result of her bowel prep which she finished before HS. Stool is liquid, yellow and clear at 0300 when checked. Pain managed well with Fentanyl 50mcg twice during the shift. NPO since 2400
[2022-11-18 16:01] VITALS: BP 108/61
[2022-11-18 16:22] VITALS: BP 103/61
--- NOTE | 2022-11-18 17:37 | NUR ---
11/18/22 1737 Jodie Joy History, Chart, Medications and Allergies reviewed before start of procedure. 3-LEAD EKG REVIEWED WITH PHYSICIAN PRIOR TO START OF PROCEDURE. MONITOR INTACT WITH CONTINUOUS PULSE OXIMETRY, CONTINUOUS END TITAL CO2, AND INTERMITTENT BLOOD PRESSURE. O2 VIA POM 10L INTACT THROUGHOUT SEDATION/PROCEDURE. SEE DR MOSER ANESTHESIA NOTES FOR DETAILS.
[2022-11-18 18:17] VITALS: BP 128/68
--- NOTE | 2022-11-18 19:33 | NUR ---
PT IS A/OX4, PLEASANT AND COOPERATIVE. THE PT IS UP WITH MINIMAL ASSIST. THE PT APPEARS TO BE BREATHING EASILY ON RA AT THIS TIME. THE PT WAS NPO UNTIL 1700 FOR COLONOSCOPY. NO TDEFINITE TIME WAS GIVEN FOR THE PROCEDURE SO THE PY WAS NPO SINCE 0730 THIS AM. PT WAS MEDICATED FOR PAIN IN ABD T/O THE DAY. PT WAS MEDICATED FOR NAUSEA X1 TODAY. FAMILY AT THE BEDSIDE T/O THE DAY. CALL LIGHT IN REACH
[2022-11-18 19:49] VITALS: BP 116/66
[2022-11-19] VITALS (13 sets, daily range): BP systolic 92–121; BP diastolic 57–73
--- NOTE | 2022-11-19 01:08 | NUR ---
REPORT GIVEN TO ILEANA CHATMAN TO ASSUME CARE OF PT
--- NOTE | 2022-11-19 12:26 | NUR ---
PT DISCHARGED THE PT VERBALIZED UNDERSTANDING OF THE DC INSTRUCTIONS. PTS MEDIPORT DC'D FLUSHED WITH 20 CC NS THEN LOCKED WITH HEPRIN. BANDAID APPLIED THE PT TOLERATED WELL. PT REMINDED TO CALL AND SCHEDULE A FOLLOW UP APPOINTMENT ON MONDAY WITH HER PCP. PT TRANSFERED VIA WHEELCAIR ACCOMPANIED BY HER MOTHER AND THE SENIOR COST ACCOUNTANT
== END 2022-11-19 11:49 | disposition home or self-care (01) | DRG 377 ==
LOC: ER 10:51 → MEDS 10:52 → ENPENDDIS 11-19 10:48 → MEDS 11-19 11:49
PROVIDERS: Emergency Medicine; Internal Medicine Nephrology; ADMIT Internal Medicine
PROC: 30233N1 Transfusion of Nonautologous Red Blood Cells into Peripheral Vein, Percutaneous Approach (ICD-10-PCS; principal; 2022-11-15)
PROC: 0DJ08ZZ Inspection of Upper Intestinal Tract, Via Natural or Artificial Opening Endoscopic (ICD-10-PCS; 2022-11-16)
PROC: 0DJD8ZZ Inspection of Lower Intestinal Tract, Via Natural or Artificial Opening Endoscopic (ICD-10-PCS; 2022-11-18)
DX: K92.2 Gastrointestinal hemorrhage, unspecified (principal); N18.6 End stage renal disease; I12.0 Hypertensive chronic kidney disease with stage 5 chronic kidney disease or end stage renal disease; E87.1 Hypo-osmolality and hyponatremia; E87.0 Hyperosmolality and hypernatremia; Z68.42 Body mass index [BMI] 45.0-49.9, adult; D63.1 Anemia in chronic kidney disease; K92.1 Melena; E87.6 Hypokalemia; E83.42 Hypomagnesemia; E66.01 Morbid (severe) obesity due to excess calories; E03.9 Hypothyroidism, unspecified; M10.9 Gout, unspecified; K64.8 Other hemorrhoids; G93.2 Benign intracranial hypertension; Z91.048 Other nonmedicinal substance allergy status; Z88.5 Allergy status to narcotic agent; Z91.040 Latex allergy status; Z88.8 Allergy status to other drugs, medicaments and biological substances; Z79.890 Hormone replacement therapy; Z99.2 Dependence on renal dialysis; Z98.890 Other specified postprocedural states; Z86.73 Personal history of transient ischemic attack (TIA), and cerebral infarction without residual deficits; Z79.899 Other long term (current) drug therapy
CPT/HCPCS: 36430; 74176; 80053; 80069; 82272; 83735; 84100; 84132; 85014; 85018; 85025; 85610; 85730; 86850; 86900; 86901; 86923; 96361; 96365; 96374; 96375; 96376; 99285-25; A9270; C9113; G0378; J0461; J0881; J1200; J1642; J2001; J2370; J2405; J2704; J3010; J3475; J3480; J7030; P9016

== ENCOUNTER 2023-03-14 14:53 | Emergency (ER) | payer MEDICARE, OTHER ==
[~2023-03-14] VITALS: Ht 152.4 cm; Wt 112.0 kg
[2023-03-14 17:00] VITALS: BP 144/68
== END 2023-03-14 17:37 | disposition home or self-care (01) ==
LOC: ER 14:53
DX: R00.0 Tachycardia, unspecified (principal); R51.9 Headache, unspecified; I12.0 Hypertensive chronic kidney disease with stage 5 chronic kidney disease or end stage renal disease; N18.6 End stage renal disease; Z99.2 Dependence on renal dialysis; E03.9 Hypothyroidism, unspecified; Z79.899 Other long term (current) drug therapy; Z91.040 Latex allergy status; Z88.5 Allergy status to narcotic agent; Z88.8 Allergy status to other drugs, medicaments and biological substances; Z91.048 Other nonmedicinal substance allergy status
CPT/HCPCS: 71045; 93005; 93010; 99285-25; A9270

== ENCOUNTER 2023-03-21 13:57 | Emergency (ER) | payer MEDICARE, OTHER ==
[~2023-03-21] VITALS: Ht 152.4 cm; Wt 114.8 kg
[2023-03-21 15:11] LABS: BASOPHILS ABSOLUTE AUTO 0.04 K/mm3 (0.00-0.23); BASOPHILS PERCENT AUTO 1 % (0-2); EOSINOPHILS ABSOLUTE AUTO 0.15 K/mm3 (0.00-0.68); EOSINOPHILS PERCENT AUTO 2 % (0-6); IMMATURE GRAN ABSOLUTE AUTO 0.04 K/mm3 (0.00-0.10); IMMATURE GRAN PERCENT AUTO 1 % (0-1); LYMPHOCYTES ABSOLUTE AUTO 1.43 K/mm3 (0.84-5.20); LYMPHOCYTES PERCENT AUTO 16 % (21-46); MONOCYTES ABSOLUTE AUTO 0.41 K/mm3 (0.16-1.47); MONOCYTES PERCENT AUTO 5 % (4-13); Mean Corpuscular HGB 34.5 pg (26.0-34.0); Mean Corpuscular HGB Conc 34.4 g/dL (31.5-36.5); Mean Corpuscular Volume 100 fL (80-100); Mean Platelet Volume 9.2 fL (9.1-12.4); NEUTROPHILS ABSOLUTE AUTO 6.71 K/mm3 (1.96-9.15); NEUTROPHILS PERCENT AUTO 76 % (41-73); Platelet Count 272 K/mm3 (150-400); RDW Coefficient Variation 16.1 % (11.7-14.2); RDW Standard Deviation 58.4 fL (35.1-46.3); Red Blood Cell Count 3.19 M/mm3 (3.80-5.20); White Blood Cell Count 8.78 K/mm3 (4.00-11.30)
[2023-03-21 15:33] LABS: Albumin, Blood 3.5 g/dL (3.4-5.0); Albumin/Globulin Ratio 0.8 (0.8-1.8); Bilirubin, Total 0.3 mg/dL (0.1-1.0); Bun/Creatinine Ratio 5.7 (12.0-20.0); Calcium, Blood 9.3 mg/dL (8.5-10.1); Creatinine, Blood 6.14 mg/dL (0.40-1.00); Globulin, Blood 4.3 g/dL (2.2-4.0); Potassium, Blood 3.4 mmol/L (3.5-5.5); Total Protein, Blood 7.8 g/dL (6.4-8.2)
[2023-03-21] MEDS ORDERED: Percocet 5-3251 EACH PO (19:28)
[2023-03-21 19:45] VITALS: BP 114/55
== END 2023-03-21 19:58 | disposition home or self-care (01) ==
LOC: ER 13:57
PROVIDERS: Emergency Medicine
DX: R07.9 Chest pain, unspecified (principal); I12.0 Hypertensive chronic kidney disease with stage 5 chronic kidney disease or end stage renal disease; N18.6 End stage renal disease; E03.9 Hypothyroidism, unspecified; Z99.2 Dependence on renal dialysis; Z91.040 Latex allergy status; Z88.5 Allergy status to narcotic agent; Z88.8 Allergy status to other drugs, medicaments and biological substances; Z91.048 Other nonmedicinal substance allergy status; Z79.899 Other long term (current) drug therapy
CPT/HCPCS: 71046; 71275; 80053; 83690; 83880; 84484; 85025; 93005; 93010; 96374-59; 96375-59; 99285-25; A9270; J1170; J1200; J1642; J2405; J2765; J2930; J7030; Q9967